=== PATIENT | female | born 1950 | race Caucasian/White ===

== ENCOUNTER 2018-07-05 05:53 | Day surgery (SDC) | payer MEDICARE, BC, OTHER ==
[2018-07-05] MEDS: PROPARACAINE 0.5% OPHTH SOL 15ML OD (06:37)
[2018-07-05] MEDS: PHENYLEPHRINE 2.5% OPHTH SOL 2ML OD (06:37)
[2018-07-05] MEDS: TROPICAMIDE 1% OPHTH SOLN 2ML OD (06:37)
[2018-07-05] MEDS: OFLOXACIN 0.3 % (OCUFLOX) OPTH SOL 5ML OD (06:38)
[2018-07-05] MEDS: POVIDONE-IODINE 5% OPHTH PREP SOL 30ML As Ordered (07:45)
[2018-07-05] MEDS: BALANCED SALT IRRIGATION SOLUTION 500ML BAG (FOR OR EYE MACHINE) As Ordered (07:46)
[2018-07-05] MEDS: LIDOCAINE 0.75%/EPINEPHRINE 0.025% IN BSS 1ML SYR INTRACAMERAL (OR ONLY) As Ordered (07:46)
[2018-07-05] MEDS: DUOVISC (0.50ML VISCOAT/0.55ML PROVISC) OPHTH KIT As Ordered (07:46)
[2018-07-05] MEDS ORDERED: MIDAZOLAM INJ 2 MG/2 ML VIAL (J2250) As Ordered (07:48)
[2018-07-05] MEDS ORDERED: fentaNYL 100 MCG/2 ML INJECTION (J3010) As Ordered (07:48)
== END 2018-07-05 09:00 | disposition home or self-care (01) ==
LOC: M SDC 05:53
DX: H25.11 Age-related nuclear cataract, right eye (principal); H40.1110 Primary open-angle glaucoma, right eye, stage unspecified; H52.201 Unspecified astigmatism, right eye; B35.9 Dermatophytosis, unspecified; E03.9 Hypothyroidism, unspecified; K21.9 Gastro-esophageal reflux disease without esophagitis; M12.9 Arthropathy, unspecified; Z88.1 Allergy status to other antibiotic agents; Z79.899 Other long term (current) drug therapy
CPT/HCPCS: 66984